=== PATIENT | male | born 1940 | race Caucasian/White ===

== ENCOUNTER → 2017-02-12 | Outpatient (CLI) | payer MEDICARE, OTHER, MEDICAID ==
[~2017-02-12] MED LIST: ACET325T51 PO; ASCO500T9 PO; AZIT500T2 PO; CALC-1138 PO; CARB1TAB20 PO; CYCL-375 PO; FINA5TAB30 PO; LACT1CAP58 PO; LUTE20TA PO; MULT-245 PO; POLY119P3 PO; PROP15DR BOTH EYES; SERT100T12 PO; TAMS0.4C47 PO
== END ==
LOC: NEU 10:54
PROVIDERS: ATTEND Psychiatry & Neurology Neurology
DX: G60.9 Hereditary and idiopathic neuropathy, unspecified (principal); G20 Parkinson's disease; R26.89 Other abnormalities of gait and mobility; G62.89 Other specified polyneuropathies; G56.03 Carpal tunnel syndrome, bilateral upper limbs; G56.23 Lesion of ulnar nerve, bilateral upper limbs
CPT/HCPCS: 95886; 95913

== ENCOUNTER → 2017-04-18 | Outpatient (CLI) | payer MEDICARE, OTHER, MEDICAID ==
[~2017-04-18] MED LIST changes: +IOHEXOL 300 MG/ML 100ml INJECTION ONE; +NORMAL SALINE 100 ML ONE; +SALINE FLUSH 10ml SYRINGE ONE
--- NOTE | 2017-04-18 11:17 | DI ---
Indication: ITS.REASON: N28.89 Other specified disorders of kidney and ureter PROCEDURE: US RENAL: Encounter: Initial Comparison: Renal CT dated December 20, 2016 Technique: Grayscale and color Doppler sonographic imaging of both kidneys and bladder was performed. FINDINGS: Limited visualization of the right kidney due to body habitus and acoustic shadowing. The patient's renal mass is family visualized measuring 2.8 x 2.5 x 2.2 cm in size with internal vascularity on the color Doppler imaging. No gross right-sided hydronephrosis or obvious stone disease. Left kidney shows no contour deforming mass or obvious hydronephrosis. Right kidney measures 10.2 cm in length. Left kidney measures 10.9 cm in length. The bladder shows no mass or debris. The ureteral jets were not seen. Bladder volume was 87.7 mL. Patient was unable to void. Impression: 2.8 cm right renal mass again concerning for renal cell carcinoma. .
--- NOTE | 2017-04-18 14:45 | DI ---
Indication: ITS.REASON: N28.89 Other specified disorders of kidney and ureter PROCEDURE: CT RENAL W/WO CONTRAST: Encounter: Initial Comparison: Renal CT dated December 20, 2016 Technique: Axial CT images were performed through the abdomen and pelvis before and after the administration of intravenous contrast. Delayed postcontrast images were also performed. Coronal and sagittal 2-dimensional reformats. Automated Exposure Control and Iterative Reconstruction dose reducing techniques were utilized. Contrast: Omnipaque 300 100 mL Findings: Chronic scarring and atelectasis in the right lung base. The unenhanced series shows no renal or ureteral stone disease. Metallic artifact from spinal fixation hardware. Postcontrast images show normal enhancement of the liver. The gallbladder, spleen and pancreas are within normal limits bilateral adrenal nodules are stable statistically representing adenomas. Enhancing mass arising from the lower pole the right kidney is unchanged at 2.5 cm in diameter. No additional enhancing renal masses seen. No hydronephrosis. No retroperitoneal or mesenteric lymphadenopathy. Bladder appears normal. No free fluid. No evidence of a bowel obstruction. Bone windows show degenerative and postoperative changes in the spine. Delayed postcontrast images show excretion of contrast by both renal collecting systems without intraluminal filling defect. Ureters appear normal in course and caliber. Partially opacified urinary bladder is normal. Impression: Stable appearance of the 2.5 cm enhancing right lower pole renal mass suspicious for renal cell carcinoma. .
== END ==
LOC: IMA 07:59
PROVIDERS: ATTEND Urology
DX: N28.89 Other specified disorders of kidney and ureter (principal)
CPT/HCPCS: 74178; 76770; J7050; Q9967